=== PATIENT | male | born 1960 | race Caucasian/White ===

== ENCOUNTER 2023-02-13 18:43 | Inpatient (IN) | payer OTHER, BC, SELFPAY ==
[2023-02-13 19:19] VITALS: BP 167/92; PULSE 82; RESP 18; TEMP 36.7; O2SAT 96
[2023-02-13] MEDS: Ibuprofen 400 MG Tablet PO (20:31)
[2023-02-13] MEDS: Atorvastatin Calcium 40 MG Tablet PO (20:31)
[2023-02-13] MEDS: cycloBENZAPRine HCl 10 MG Tablet PO (21:47)
[2023-02-13] MEDS: Senna/Docusate Sodium 1 Tablet 2 TABLET PO (21:47)
[2023-02-14 01:28] VITALS: BMI 26.2
[2023-02-14] MEDS: Ibuprofen 400 MG Tablet PO ×3 (06:13→21:13)
[2023-02-14] MEDS: cycloBENZAPRine HCl 10 MG Tablet PO ×3 (06:14→21:13)
[2023-02-14 07:56] LABS: Anion Gap 6 (5-15); BUN 10 mg/dL (7-18); BUN/Creat Ratio 15.8 RATIO (10-20); Calcium,Total 8.7 mg/dL (8.5-10.1); Chloride 104 mmol/L (98-107); Creatinine, Serum 0.63 mg/dL (0.55-1.02); EST Glomerular Filtration Rate 102 mL/min (>60); Est Glom Filt Rate - Afr Amer 124 mL/min (>60); Glucose 89 mg/dL (74-106); Magnesium 2.2 mg/dL (1.6-2.6); Phosphorus 3.9 mg/dL (2.5-4.9); Sodium Level 136 mmol/L (136-145)
[2023-02-14 07:58] VITALS: BP 146/83; PULSE 86; RESP 18; TEMP 36.1; O2SAT 92
[2023-02-14] MEDS: Senna/Docusate Sodium 1 Tablet 2 TABLET PO ×2 (08:19→21:13)
[2023-02-14] MEDS: Polyethylene Glycol 3350 17 GM PACKET PO (08:19)
[2023-02-14] MEDS: Lisinopril 10 MG Tablet PO (08:19)
[2023-02-14 08:22] LABS: Hematocrit 38.3 % (37-47); Hemoglobin 13.1 g/dL (12.0-15.0); Mean Corp Hgb Conc 34.2 g/dL (32-36); Mean Corpuscular Hgb 31.3 pg (27.0-32.0); Mean Corpuscular Volume 91.4 fL (81-99); Mean Platelet Vol. 9.7 fl (6.2-12.0); Platelet Count 286 K/mm3 (150-450); RBC Distribution Width SD 40.3 fl (35.1-43.9); Red Blood Count 4.19 M/mm3 (4.2-5.4)
[2023-02-14] MEDS: Magnesium Hydroxide 30 ML UDC PO (16:48)
[2023-02-14 19:47] VITALS: BP 148/87; PULSE 95; RESP 16; TEMP 36.9; O2SAT 95
[2023-02-14] MEDS: Atorvastatin Calcium 40 MG Tablet PO (21:13)
[2023-02-14 22:00] VITALS: PULSE 90; RESP 16; O2SAT 95
[2023-02-15] MEDS: Ibuprofen 400 MG Tablet PO ×3 (05:21→20:49)
[2023-02-15] MEDS: cycloBENZAPRine HCl 10 MG Tablet PO ×3 (05:21→20:50)
[2023-02-15 07:50] VITALS: BP 153/84; PULSE 89; RESP 17; TEMP 36.8; O2SAT 91; O2SAT 93
[2023-02-15] MEDS: Senna/Docusate Sodium 1 Tablet 2 TABLET PO ×2 (08:03→20:48)
[2023-02-15] MEDS: Lisinopril 10 MG Tablet PO (08:03)
--- NOTE | 2023-02-15 08:21 | CPS ---
PT WAS INSTRUCTED TO DO SMI AND PEP ON OWN AFTER HE'S DONE WITH BREAKFAST
--- NOTE | 2023-02-15 11:19 | CPS ---
PT WAS UNAVAILABLE AT THIS TIME BUT WAS INSTRUCTED TO USE ON OWN WHEN ABLE.
--- NOTE | 2023-02-15 11:37 | PCM.HP.STD ---
[facility] - General General Date of Admission: 02/13/23 Date of Service: 02/15/23 Chief Complaint: Physical debility secondary to severe pain from a lumbar vertebral fracture sustained in a fall. 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 A CT of the LS spine showed a burst fracture of L1 with a 30% loss of height and a 4 mm retropulsion of the posterior fracture fragment. The fracture was of the superior aspect of L1 with anterior wedging. A CT scan of the thoracic spine without contrast showed the L1 vertebral fracture but also showed multilevel flowing ventrolateral osteophytes, possibly reflective of DISH, and coronary calcification. He was admitted to a hospital for pain control and consult with orthopedics. While in the hospital he was seen by PT/OT and they recommended acute rahab at [place]. Neck was transferred to the acute inpatient rehab unit at [facility] on 02/13/2023 for 3 hours of therapy daily to restore function at or near level prior to the fall/fracture. Incidental finding on CT of the cervical spine was prominent [place] tonsils with tonsillolith. A lipid panel was done at the previous hospital and it showed triglycerides of 160, a total cholesterol of 186, HDL of 40 and a calculated LDL of 114. TSH was normal. Afebrile VSS-blood pressures since admission have ranged from 146/83 to 167/92. Heart rate is within normal limits. Maintaining appropriate oxygen saturation on RA-pulse ox on room air has ranged from 91-96. Oral intake is good Discussed with nursing -was straight cathed once for a postvoid residual of 350. To postvoid residuals after that were 52 and 79. Reviewed the PT/OT/ST notes Medication list reviewed. Medications prescribed for back pain include Flexeril 10 mg 3 times daily, Motrin 400 mg every 8 hours, morphine sulfate immediate release 7.5 mg every 4 hours as needed. He had 2 doses of morphine sulfate on 02/14/2023 with the last one being at approximately 4:30 PM. He has not had any since. He is requesting a nicotine patch and he was prescribed a 14 mg patch. All lab from the morning of 02/14/2023 was reviewed. White blood cell count is normal at 10 and the hemoglobin is normal at 13.1. MCV and MCH are within normal limits. Platelet count is normal. Sodium is 136 with a potassium of 4.0. The BUN is 10 with a creatinine of 0.63. Fasting glucose was 89. Calcium, phosphorus and magnesium are all within normal limits. [facility] Medical History (Updated 02/15/23 @ 12:[address] Susy Ag DO) Colon polyps Diabetes Hyperlipidemia Hypertension Spondylosis Tobacco dependence due to chewing tobacco Home Medications atorvastatin 40 mg tablet 40 mg PO QHS Check with primary doctor 02/13/23 [History Last Taken 02/12/23] cyclobenzaprine 10 mg tablet 10 mg PO TID Check with primary doctor 02/13/23 [History Last Taken 02/12/23] ibuprofen 400 mg tablet 400 mg PO Q8H PRN Pain (Scale Score 1-10) 02/13/23 [History Last Taken 02/12/23] lisinopril 10 mg tablet 10 mg PO DAILY Check with primary doctor 02/13/23 [History Last Taken 02/13/23] oxycodone 5 mg capsule 5 mg PO Q6H PRN Moderate Pain (Scale Score 5-10) 02/13/23 [History Last Taken 02/13/23 18:45] polyethylene glycol 3350 17 gram oral powder packet (Miralax) 17 g PO DAILY Check with primary doctor 02/13/23 [History Last Taken 02/13/23] sennosides 8.6 mg-docusate sodium 50 mg capsule 2 tab-cap PO BID Check with primary doctor 02/13/23 [History Last Taken Unknown] Allergy/AdvReac Type Severity Reaction Status Date / Time No Known Allergies Allergy Verified 02/13/23 19:21 Family History (Updated 02/15/23 @ 12:[address] Susy Ag DO) Uncle CAD (coronary artery disease) maternal uncle young of a [place] Father Cancer suspect esophageal CA. Had a lump in the throat/neck and was losing a lot of weight. He was a drinker and a smoker. Grandmother Diabetes maternal and paternal GM's had DM II Surgical History (Updated 02/15/23 @ 12:[address] Susy Ag DO) History of colonoscopy with polypectomy Social History (Updated 02/15/23 @ 12:[address] Susy Ag DO) household members: spouse, family and other details: He has a son and has 3 children. 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 Smoking Status: Never smoker Smokeless tobacco user: chewing tobacco Electronic Cigarette Use: not used second hand exposure: Yes alcohol intake: current alcohol intake frequency: a few times a month substance use type: does not use ROS Constitutional Constitutional: Reports weakness; Denies anorexia, change in weight, chills, fatigue, fever(s) or night sweats Eyes Eyes: Denies blurry vision, change in vision, eye pain or loss of vision ENT HEENT: Denies abnormal hearing, dysphagia, headache(s), hearing loss, nasal congestion or sore throat Cardiovascular Cardiovascular: Denies chest pain, dyspnea on exertion, edema, lightheadedness, orthopnea, palpitations, paroxysmal nocturnal dyspnea or syncope Respiratory/Chest Respiratory/Chest: Denies cough, dyspnea, shortness of breath at rest, shortness of breath with exertion or wheezing Gastrointestinal Gastrointestinal: Reports constipation; Denies abdominal pain, diarrhea, dyspepsia, hematemesis, hematochezia, nausea or vomiting Genitourinary Genitourinary: Denies dysuria, hematuria, nocturia, urinary frequency, urinary hesitancy, urinary incontinence or urinary urgency Musculoskeletal Musculoskeletal: Reports back pain, difficulty walking, muscle spasms and stiffness; Denies extremity pain, joint pain, joint swelling or neck pain Integumentary Integumentary: Denies alopecia, changing lesions or jaundice Neurologic Neurologic: Denies confusion, disequilibrium, dizziness, focal weakness, headache(s), paresthesias, seizures or tremor(s) Psychiatric Psychiatric: Denies anxiety, depression, homicidal ideation or suicidal ideation Endocrine Endocrinology: Denies change in body appearance, polydipsia or polyuria Hematologic/Lymphatic Hematologic/Lymphatic: Denies easy bleeding, easy bruising or lymphadenopathy Allergic/Immunologic Allergic/Immunologic: Denies rhinitis, eczemia or asthma Vital Signs Vital Signs Vital Signs: 02/14/23 16:00 02/14/23 19:47 02/14/23 22:00 Temperature 98.4 F Temperature Source Oral Pulse Rate 95 90 Respiratory Rate 16 16 Respiratory Effort Normal Non-Labored Respiratory Depth Normal Respiratory Pattern Normal Blood Pressure 148/87 H Blood Pressure Mean 107 Blood Pressure Source Monitor Blood Pressure Position Semi-Fowlers Blood Pressure Location Right Arm Pulse Ox 95 95 Oxygen Delivery Method Room Air Room Air Room Air 02/15/23 07:50 02/15/23 07:50 Temperature 98.2 F Temperature Source Oral Pulse Rate 89 Respiratory Rate 17 Respiratory Effort Respiratory Depth Respiratory Pattern Blood Pressure 153/84 H Blood Pressure Mean 107 Blood Pressure Source Monitor Blood Pressure Position Semi-Fowlers Blood Pressure Location Right Arm Pulse Ox 93 91 Oxygen Delivery Method Room Air Room Air Weight Weight: 161 lb 6.054 oz Body Mass Index (BMI) 26.2 Physical Exam Const alert, oriented x3, no apparent distress and well nourished Constitutional Narrative: Lying in bed. General Appearance: cooperative HEENT normocephalic, head/scalp atraumatic and hearing grossly normal bilaterally HEENT Narrative: MM are dry Eyes PERRL, EOMs intact bilaterally, conjunctivae normal and no scleral icterus General Eye: normal appearance of both eyes Neck no lymphadenopathy, supple, no JVD and no carotid bruits Chest Chest: symmetrical chest wall rise Resp normal respiratory effort, no use of accessory muscles and clear to auscultation bilaterally Resp Narrative: Not tachypneic and no conversational dyspnea. Diminished BS's. Effort and Inspection: able to speak in complete sentences Cardio regular rate, regular rhythm, S1 normal heart sound, S2 normal heart sound, no murmurs, no rub and no gallops Cardio Narrative: No ectopy GI normal to inspection, nondistended, normoactive bowel sounds and non-tender GI Narrative: No guarding with palpation. Bladder / Kidney Exam: no CVA tenderness Back/Spine Back/Spine Narrative: Pain in the lumbar area BL. Has a lot of Muscle spasm in the lumbar paravertebral Muscles. Good strength in legs and symmetrical. SLR is + but, not until 70-75 degrees and the pain was in the back not in the legs. Extremity no clubbing, cyanosis or edema Extremity Narrative: Negative Efren's and Feliz's signs Skin Skin Narrative: No rashes, no skin breakdown. Neuro oriented x3, CN's II-XII intact bilaterally and no focal motor deficits Motor Exam: strength 5/5 throughout Psych affect normal Psych Narrative: Appropriate, making good eye contact. Able to stay on topic and focus. No flight of ideas. Does not appear anxious or depressed. Conversant and relating well to staff. Results Lab / Micro Data Result Diagrams: 02/14/23 07:32 02/14/23 07:32 Assessment & Plan Assessment/Plan (1) Debility: (2) Fall: PLAN: 4 ft fall onto his back while at work (3) Acute low back pain: PLAN: Has had Back and neck pain in the past when he was doing a job that required a lot of lifting. He does not do much lifting at the current job and has only occasional low back pain. (4) Closed L1 vertebral fracture: PLAN: 30% loss of height of L1 with anterior wedging and a retropulsed fragment. (5) Spondylosis: PLAN: The radiologist suggested the possibility of DISH. (6) Tobacco dependence due to chewing tobacco: (7) Hypertension: (8) Hyperlipidemia: (9) Diabetes: PLAN: diet controlled (10) Colon polyps: PLAN: He should have another colonoscopy since it has been over 5 years and he had 3 polyps at the last colonoscopy. PLAN: Plan PLAN PT for gait stability OT for ADL's Analgesics as needed Bowel protocol Fall precautions Assess for Anxiety/Depression GI prophylaxis-not necessary, no history of peptic ulcer disease and he denies epigastric pain, nausea and vomiting. DVT prophylaxis with JAKOB hose and Lovenox 40 mg subcu daily Follow up with PCP and orthopedics following DC from [facility] AM lab including BMP, CBC, Mag and Phos reviewed. Will provide him with information on DISH and tx.......no cure. No heavy lifting. Cessation of chewing tobacco encouraged Nicotine patch Overnight trending pulse ox. Snores loudly and his states he stops breathing at times. Charges/Coding Visit Charges Inpatient E&M: 86685 Init Hosp L2
[2023-02-15] MEDS: Enoxaparin 40 MG/0.4 ML Syringe SC (14:28)
[2023-02-15] MEDS: Bisacodyl 5 MG Tablet 10 MG PO (14:28)
[2023-02-15 19:55] VITALS: BP 125/84; PULSE 89; RESP 14; TEMP 36.7; O2SAT 94
[2023-02-15] MEDS: Atorvastatin Calcium 40 MG Tablet PO (20:49)
[2023-02-15 22:00] VITALS: PULSE 79; O2SAT 94
[2023-02-16] MEDS: Ibuprofen 400 MG Tablet PO ×3 (05:12→21:00)
[2023-02-16] MEDS: cycloBENZAPRine HCl 10 MG Tablet PO ×2 (05:12→15:11)
[2023-02-16] MEDS: Enoxaparin 40 MG/0.4 ML Syringe SC (08:23)
[2023-02-16] MEDS: Lisinopril 10 MG Tablet PO (08:24)
[2023-02-16 08:45] VITALS: BP 148/91; PULSE 80; RESP 20; TEMP 36.2; O2SAT 93
--- NOTE | 2023-02-16 16:00 | REHABEVAL_ITS ---
Admission Information Primary Diagnosis:: Debility due to a fall resulting in a burst fracture of L1. Status Changes from Prescreening?: No changes Identified Actual Problem List:: Falls, Pain, ALteration in Cmfrt, Bowel, Constipation, Mobility Impaired, Self Care Deficit and Alteration-Leisure Activ. Potential Problem List:: DVT, Bleeding, Infection, UTI, Aspiration, Falls, Skin Integrity and Depression Risk of Complications DVT: LMWH and JAKOB Hose Bleeding: Monitor Lab Values, Nursing to Teach Precautions for anti-coagulation therapy., Wound, if applicable, to be assessed every shift. and Stroke patients assessed for lethargy or change in status. Infection: Clinical Staff to Monitor for S/S of infection: and S/S of infection include fever, redness, warmth, etc. Urinary Tract Infection: Monitor for frequency, burning, discomfort, or incontinence. and Nursing will obtain urine sample for urinalysis and C&S when ordered. Aspiration: Clinical staff will monitor for coughing, drooling, congestion., Speech will evaluate swallowing and dsyphasia. and Nursing will monitor patient swallowing during meals. Falls: Patient will be evaluated for Fall Precautions and Patient will be placed on Fall Precautions as indicated per protocol. Skin Breakdown: Nursing will assess skin daily using assessment tool. and Nursing will place on Skin Breakdown Precautions as indicated. Pain: Clinical staff will assess patient's pain level per protocol., Medications will be given, if needed, and the pain level reassessed. and Other methods: Massage, distraction, decrease stimulus, etc. used PRN. Plan of Care Patient requires physician specializing in physical medicine and rehab oversight to provide close medical supervision of rehab issues including: Pain Management, Sleep Problems, Bowel and Bladder, Medical and co-morbidity Management, DVT prophylaxis, Rehabilitation Leadership and Coordination of treatment team Patient needs Physical Therapy: For a minimum of 1 hour and At least 5 out of 7 days Patient needs Physical Therapy to improve:: Mobility, Strengthening, Transfers, Stretching, ROM, Endurance, Stairs, Gait and Balance Patient needs Occupational Therapy: For a minimum of 1 hour and At least 5 out of 7 days Patient needs Occupational Therapy to improve ADL's incl.: Eating, Grooming, Bathing, Dressing, Toileting, Toilet transfers, Community Reintegration, Higher functioning activities, Household tasks, Adaptive Equipment, Splinting and Other activities as determined Patient requires 24/ Rehabilitation Nursing for: Pain Issues, Identifying and preventing risk factors, Monitoring and reporting current medical conditions, Assisting with ambulation, transfer, and all ADL's, Teaching patients about disease process and medications, Family teaching, Providing safe environment, Bowel and Bladder Issues, Skin integrity and Medication Management Patient needs Loader Helper Sorting Yard/ Case Management for: Discharge Planning, Arranging Home Equipment or Services and Family Interventions Patient needs Dietary and Nutrition Services for: Adequate Nutrition, Nutritional Supplements and Nutritional Education Goals Patient will remain: free from falls and or injury at time of discharge. Patient will perform bed mobility at: MOD I level of assist. Patient will complete transfers from bed to chair at: MOD I level of assist. Patient will ambulate: with LRD and - (200 feet with least restrictive device) Patient will complete upper body dressing at: MOD I level of assist. Patient will complete lower body dressing at: Standby Assist. (with a long handled certified diabetes educator. ) Patient will complete toileting at: MOD I level of assist. Patient will perform bathing at: MOD I level of assist. Patient will complete grooming at: MOD I level of assist. Patient will complete home management skills at: MOD I level of assist. Patient will achieve: - (1 curb step. A flight of stairs with LRD with HR's) Patient will have pain level of: of 3 or less Patient's skin will: remain intact Patient will receive: adequate nutrition. Discharge Planning Pt Prognosis for Sig. Practical Improv. w/in Reasonable Time: Good Estimated Length of stay (days): 14 Anticipated D/C Destination: Home with Outpt Therapy Was Preadmission Assessment Accurate?: Yes
--- NOTE | 2023-02-16 16:06 | PCM.PROGNOTE ---
Subjective Subjective Afebrile VSS-blood pressure was elevated this morning at 148/91. It is more frequently elevated than normal. Heart rate is normal. Maintaining appropriate oxygen saturation on RA while awake. Oral intake is good Discussed with nursing - no problems that need addressed Reviewed the PT/OT notes-ambulated 110 feet x 2 today with a rollator walker. He had pain shooting down both his legs with hip abduction. Medication list reviewed. Has not taken any MS since Thursday. No pain at rest but, even though he is not taking pain meds he is having severe pain which is impairing his ability to do therapy.........shooting pain into both legs today when standing with hip abduction. Took several minutes of sitting for the pain to improve. He denies any pain in his legs to me. Objective Data Objective Data Vital Signs: Vital Signs Temp Pulse Resp BP Pulse Ox O2 Del Method FiO2 97.1 F L 80 20 H 148/91 H 93 Room Air 21 02/16/23 08:45 02/16/23 08:45 02/16/23 08:45 02/16/23 08:45 02/16/23 08:45 02/16/23 08:45 02/15/23 22:00 Oxygen Delivery Method Room Air Weight: 161 lb 6.054 oz Body Mass Index (BMI) 26.2 Intake & Output: Intake and Output for Last 24 Hours 02/14/23 02/15/23 02/16/23 23:59 23:59 23:59 Intake Total 1580 / 1580 1340 / 1340 680 / 680 Output Total 2136 / 2136 1250 / 1250 350 / 350 Balance -556 / -556 90 / 90 330 / 330 Lab / Micro Data Result Diagrams: 02/14/23 07:32 02/14/23 07:32 Physical Exam Const alert, oriented x3 and no apparent distress Constitutional Narrative: looks fine lying in bed. Ambulating with a very slow gait in the hallway. Looked to be in pain with ambulation. Resp clear to auscultation bilaterally Effort and Inspection: Negative for tachypneic Auscultation: diminished lung sounds Cardio regular rate, regular rhythm and no gallops GI normal to inspection, nondistended, normoactive bowel sounds, soft to palpation and non-tender Extremity no calf tenderness General Extremity: Negative for edema Neuro CN's II-XII intact bilaterally, no focal motor deficits and no sensory deficits noted Psych affect normal Assessment & Plan Assessment/Plan (1) Debility: (2) Fall: PLAN: 4 ft fall onto his back while at work (3) Acute low back pain: PLAN: Has had Back and neck pain in the past when he was doing a job that required a lot of lifting. He does not do much lifting at the current job and has only occasional low back pain. (4) Closed L1 vertebral fracture: PLAN: 30% loss of height of L1 with anterior wedging and a retropulsed fragment. (5) Spondylosis: PLAN: The radiologist suggested the possibility of DISH. (6) Tobacco dependence due to chewing tobacco: (7) Hypertension: (8) Hyperlipidemia: (9) Diabetes: PLAN: diet controlled (10) Colon polyps: PLAN: He should have another colonoscopy since it has been over 5 years and he had 3 polyps at the last colonoscopy. PLAN: Plan 1. Continue therapy 2. DC Flexeril and start Zanaflex for persistent muscle spasms 3. Continue morphine sulfate 7.5 mg every 4 hours as needed but scheduled doses in the a.m. with breakfast and at lunchtime to facilitate better participation with therapy. 3. D/W him vertebroplasty and also the sx of DISH and tx. Will provide some literature for him to read on DISH. 4. Encouraged him to take the pain medications for pain > 3 to facilitate better performance in therapy. 5. If he is interested in vertebroplasty will refer to Dr. Isaac at [place] from rehab. Charges/Coding Visit Charges Inpatient E&M: 00181 Subs Hosp L2
[2023-02-16] MEDS: Atorvastatin Calcium 40 MG Tablet PO (21:00)
[2023-02-16] MEDS: tiZANidine HCl 2 MG Tablet 4 MG PO (21:01)
[2023-02-16 21:11] VITALS: BP 139/84; PULSE 71; RESP 16; TEMP 36.6; O2SAT 96
[2023-02-17] MEDS: tiZANidine HCl 2 MG Tablet 4 MG PO ×3 (06:16→21:22)
[2023-02-17] MEDS: Ibuprofen 400 MG Tablet PO ×3 (06:16→21:22)
[2023-02-17 07:32] VITALS: BP 128/81; PULSE 75; RESP 14; TEMP 36.4; O2SAT 98
[2023-02-17] MEDS: Senna/Docusate Sodium 1 Tablet 2 TABLET PO ×2 (08:21→21:22)
[2023-02-17] MEDS: Lisinopril 10 MG Tablet PO (08:21)
[2023-02-17] MEDS: Polyethylene Glycol 3350 17 GM PACKET PO (08:21)
[2023-02-17] MEDS: Enoxaparin 40 MG/0.4 ML Syringe SC (08:21)
--- NOTE | 2023-02-17 14:50 | PCM.PROGNOTE ---
Subjective Subjective Afebrile VSS-blood pressures are consistently mildly elevated. Maintaining appropriate oxygen saturation on RA Oral intake is good Discussed with nursing - no problems that need addressed. Reviewed the PT/OT/ST notes Medication list reviewed. Pain was better today while doing his therapy since we are now scheduling 2 doses of the MS daily at breakfast and lunch. He denies chest pain, shortness of breath, palpitations, lightheadedness, nausea/vomiting/abdominal pain, dysuria and calf tenderness. He is having some difficulty sleeping at night but refused a sleep aid. He is taking the 2 doses of morphine sulfate daily but is not taking any as needed doses, even though he has pain at night. Objective Data Objective Data Vital Signs: Vital Signs Temp Pulse Resp BP Pulse Ox O2 Del Method FiO2 97.6 F L 75 14 128/81 H 98 Room Air 21 02/17/23 07:32 02/17/23 07:32 02/17/23 07:32 02/17/23 07:32 02/17/23 07:32 02/17/23 07:32 02/15/23 22:00 Oxygen Delivery Method Room Air Weight: 161 lb 6.054 oz Body Mass Index (BMI) 26.2 Intake & Output: Intake and Output for Last 24 Hours 02/15/23 02/16/23 02/17/23 23:59 23:59 23:59 Intake Total 1340 / 1340 1220 / 1220 540 / 540 Output Total 1250 / 1250 350 / 850 850 / 850 Balance 90 / 90 870 / 370 -310 / -310 Lab / Micro Data Result Diagrams: 02/14/23 07:32 02/14/23 07:32 Physical Exam Const alert and oriented x3 Constitutional Narrative: Still looks painful when he is ambulating in the huber with a walker but, his pace has picked up since he is getting the scheduled SM at 0700 and 1200. General Appearance: cooperative Resp clear to auscultation bilaterally Auscultation: diminished lung sounds Cardio regular rate, regular rhythm and no gallops GI normal to inspection, nondistended, normoactive bowel sounds, soft to palpation and non-tender Back/Spine Back/Spine Narrative: Having spasms in the low back......more so at the end of the day. He is getting scheduled Tizanidine and tells me that it is helping. Has pain with percussion over the L1 vertebrae but he tells me that the pain medication is adequate. Extremity no calf tenderness Assessment & Plan Assessment/Plan (1) Debility: PLAN: Due to L1 compression fx with retropulsed fragment. 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 (3) Acute low back pain: PLAN: No radicular pain or paresthesias into the legs and no urine retention or fecal/urine incontinence. (4) Closed L1 vertebral fracture: PLAN: 30% anterior wedging of L1. Has a retropulsed fragment into spinal canal with no cord compression. (5) Spondylosis: PLAN: LS spine (6) Tobacco dependence due to chewing tobacco: PLAN: Long standing. Has a white patch on the R tonsil and was instructed to follow up with an ENT doctor to examine. (7) Hypertension: PLAN: Mildly elevated in rehab, possibly due to pain. Advised to follow up with Dr. Way for a recheck in 7-10 days. (8) Hyperlipidemia: (9) Diabetes: PLAN: diet controlled. (10) Colon polyps: PLAN: Has had resection of polyps. Last colonoscopy was > 5 years ago. (11) Tonsillolith: PLAN: I recommended to him that he stop chewing tobacco and follow up with an ENT doctor to look at the tonsils and see if he may need a bx. I will give him nicotine patches to go home home with and wean off over the next 2 months. PLAN: Plan 1. Continue therapy Charges/Coding Visit Charges Inpatient E&M: 65981 Subs Hosp L2
[2023-02-17 21:15] VITALS: BP 106/62; PULSE 66; RESP 18; TEMP 36.7; O2SAT 95
[2023-02-17] MEDS: Atorvastatin Calcium 40 MG Tablet PO (21:22)
[2023-02-18 06:00] VITALS: BMI 25.2
[2023-02-18] MEDS: Ibuprofen 400 MG Tablet PO ×3 (06:24→20:56)
[2023-02-18] MEDS: tiZANidine HCl 2 MG Tablet 4 MG PO ×3 (06:24→20:56)
--- NOTE | 2023-02-18 06:41 | NURSING ---
BATTERYMAN documentation reviewed with agreed with.
[2023-02-18 07:51] VITALS: BP 136/81; PULSE 72; RESP 14; TEMP 36.2; O2SAT 95
[2023-02-18 09:12] VITALS: PULSE 74; RESP 18; O2SAT 98
[2023-02-18] MEDS: Senna/Docusate Sodium 1 Tablet 2 TABLET PO ×2 (10:19→20:56)
[2023-02-18] MEDS: Lisinopril 10 MG Tablet PO (10:19)
[2023-02-18] MEDS: Enoxaparin 40 MG/0.4 ML Syringe SC (10:19)
[2023-02-18] MEDS: Magnesium Hydroxide 30 ML UDC PO (20:56)
[2023-02-18] MEDS: Atorvastatin Calcium 40 MG Tablet PO (20:56)
[2023-02-18 22:00] VITALS: BP 104/64; PULSE 71; RESP 18; TEMP 36.7; O2SAT 94
[2023-02-19] MEDS: tiZANidine HCl 2 MG Tablet 4 MG PO ×3 (05:34→21:07)
[2023-02-19] MEDS: Ibuprofen 400 MG Tablet PO ×3 (05:34→21:08)
[2023-02-19 09:18] VITALS: BP 135/71; PULSE 65; RESP 15; TEMP 36.3; O2SAT 96
[2023-02-19] MEDS: Enoxaparin 40 MG/0.4 ML Syringe SC (09:24)
[2023-02-19] MEDS: Senna/Docusate Sodium 1 Tablet 2 TABLET PO ×2 (09:25→21:08)
[2023-02-19] MEDS: Lisinopril 10 MG Tablet PO (09:25)
[2023-02-19] MEDS: Polyethylene Glycol 3350 17 GM PACKET PO (09:25)
--- NOTE | 2023-02-19 10:22 | PCM.PROGNOTE ---
Subjective Subjective George was seen on team rounds today. His Carter was present in the room. Carter is an RN. All questions were answered to their satisfaction. Afebrile VSS Maintaining appropriate oxygen saturation on RA Oral intake is good Discussed with nursing - no problems that need addressed Reviewed the PT/OT notes - He is progressing with PT/OT. Still using a RW. Did some steps today with 2 HR's at [facility]. Gait has picked up but, still with painful gait. Medication list reviewed. Has not been taking any MS as needed but is good with the scheduled doses at 7 AM and noon because it helps him get through therapy easier. Tells me that he did not sleep so well last night however, every time nursing looked in on him he was sleeping. We discussed adding something to help him sleep at night and he said no......he would be OK. He is also c/o constipation. Last BM was 2 days ago and he is on 2 stool softeners. He has PRN laxative needed if he feels he needs it. George denies chest pain, palpitations, shortness of breath, cough, nausea/vomiting/abdominal pain, dysuria and calf tenderness. He denies any radicular pain into his legs or paresthesias. No difficulty with urination. Objective Data Objective Data Vital Signs: Vital Signs Temp Pulse Resp BP Pulse Ox O2 Del Method FiO2 97.4 F L 65 15 135/71 H 96 Room Air 21 02/19/23 09:18 02/19/23 09:18 02/19/23 09:18 02/19/23 09:18 02/19/23 09:18 02/19/23 09:18 02/15/23 22:00 Oxygen Delivery Method Room Air Weight: 154 lb 14.4 oz Body Mass Index (BMI) 25.2 Intake & Output: Intake and Output for Last 24 Hours 02/17/23 02/18/23 02/19/23 23:59 23:59 23:59 Intake Total 1400 / 1400 1330 / 1330 Output Total 1450 / 1450 550 / 550 Balance -50 / -50 780 / 780 Lab / Micro Data Result Diagrams: 02/14/23 07:32 02/14/23 07:32 Physical Exam Const alert, oriented x3 and no apparent distress Constitutional Narrative: looks fine lying in bed. Ambulating with a very slow gait in the hallway. Looked to be in pain with ambulation. General Appearance: cooperative HEENT moist oral mucous membranes HEENT Narrative: He has been a tobacco chewer for many years. CT report from the other hospital mentioned a tonsillolith. His tonsils are no large but, I see several areas that look follicular and a white nodule on the R tonsil. Resp normal respiratory effort and clear to auscultation bilaterally Resp Narrative: Not tachypneic and no conversational dyspnea. Diminished BS's. Effort and Inspection: able to speak in complete sentences Auscultation: diminished lung sounds Cardio regular rate, regular rhythm, no murmurs, no rub and no gallops Cardio Narrative: No ectopy GI normal to inspection, nondistended, normoactive bowel sounds, soft to palpation and non-tender GI Narrative: No guarding with palpation. Bladder / Kidney Exam: no CVA tenderness Back/Spine Back/Spine Narrative: Pain in the lumbar area BL. Has a lot of Muscle spasm in the lumbar paravertebral Muscles. Good strength in legs and symmetrical. SLR is + but, not until 70-75 degrees and the pain was in the back not in the legs. Extremity no calf tenderness General Extremity: Negative for edema Skin Skin Narrative: No rashes, no skin breakdown. Neuro oriented x3, CN's II-XII intact bilaterally, no focal motor deficits and no sensory deficits noted Motor Exam: strength 5/5 throughout Psych affect normal Assessment & Plan Assessment/Plan (1) Debility: (2) Fall: (3) Acute low back pain: (4) Closed L1 vertebral fracture: (5) Spondylosis: (6) Tobacco dependence due to chewing tobacco: (7) Hypertension: (8) Hyperlipidemia: (9) Diabetes: (10) Colon polyps: (11) Tonsillolith: PLAN: I recommended to him that he stop chewing tobacco and follow up with an ENT doctor to look at the tonsils and see if he may need a bx. I will give him nicotine patches to go home home with and wean off over the next 2 months. PLAN: Plan 1. Continue therapy 2. Consult Dr. Dr. Isaac to discuss vertebroplasty with the patient and his so that we can get him scheduled BIA for the procedure if he wants. Send for a FILM of the MRI so Dr. Isaac can review. 3. Carter would like to be home for the first few days that George's home to make sure he will be safe at home. George and the therapists feel that he will be OK home alone and he would like to be discharged sooner rather than later. Will see how the next few days of therapy go. 4. Continue scheduled morphine sulfate at 7 AM and noon while he is in rehab. 5. Carter will get me paperwork to fill out for FMLA. She will come in next week for family training. Charges/Coding Visit Charges Inpatient E&M: 63721 Subs Hosp L2
--- NOTE | 2023-02-19 13:09 | CASEMGMT ---
Addendum entered by Swapna Adames 02/19/23 16:51: spoke with Dr and requesting DC 02/22, as long as Dr. Isaac can visit pt to get procedure scheduled. agreeable to OP PT/OT, requesting [facility]. SW to place referral. Plan: DC home with 02/22, [facility] OP PT/OT, shower chair Addendum entered by Swapna Adames 02/19/23 16:51: SW left voicemail with Avani GARCIA CM. Received return voicemail with secure email address. Email sent requesting C-9 to request OP ST and shower chair Original Note: Social Work IDT met with patient and for Team meeting. Discussed patient's progress in PT/OT/SN. Educated to worker's comp insurance NRD 02/20 and continued stay is not guaranteed. SW offered to set DC date or ask for continued stay. is a little apprehensive about DC home before having pain Dr consult and therapy training. OT/PT scheduled car transfer and therapy training with on 02/20 at 1300. 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 Discussed HHC vs OP therapy at DC. Pt does need shower chair and grab bars in the shower. D/T to workers comp, pt may be able to get that DME covered. SW to ask insurance reviewer for workers comp CM to order HHC/OP and DME. Overall, requesting continued stay and this worker to assist with DC planning. APOORVA CalhounW
[2023-02-19] MEDS: Magnesium Hydroxide 30 ML UDC PO (19:02)
[2023-02-19] MEDS: Atorvastatin Calcium 40 MG Tablet PO (21:08)
[2023-02-19 22:00] VITALS: BP 124/70; PULSE 62; PULSE 68; RESP 18; TEMP 36.8; O2SAT 95
--- NOTE | 2023-02-20 04:03 | NURSING ---
Reviewed and agree with Tasha QUIGLEY documentation and assessment charting.
[2023-02-20] MEDS: Ibuprofen 400 MG Tablet PO ×3 (06:04→20:46)
[2023-02-20] MEDS: tiZANidine HCl 2 MG Tablet 4 MG PO ×3 (06:05→20:46)
[2023-02-20 07:27] VITALS: BP 118/59; PULSE 65; RESP 16; TEMP 36.4; O2SAT 96
--- NOTE | 2023-02-20 08:36 | CASEMGMT ---
Social Work Notified by nursing that Dr. Isaac saw pt last evening. Pt and are ready to DC on 02/22. SW received C9 from [employer] comp CM. CM instructed for pt to purchase shower chair and then submit receipt for reimbursement. SW updated pt. Returned C9 and placed referral to [facility] for PT/OT, outpatient. Plan: DC home with 02/22, [facility] OP PT/OT, shower chair Swapna Adames, [employer] ATTENDANT FLASH DEVELOPER
[2023-02-20] MEDS: Enoxaparin 40 MG/0.4 ML Syringe SC (08:48)
[2023-02-20] MEDS: Senna/Docusate Sodium 1 Tablet 2 TABLET PO ×2 (08:49→20:46)
[2023-02-20] MEDS: Polyethylene Glycol 3350 17 GM PACKET PO (08:49)
[2023-02-20] MEDS: Lisinopril 10 MG Tablet PO (08:49)
[2023-02-20 20:00] VITALS: RESP 16; O2SAT 96
[2023-02-20] MEDS: Atorvastatin Calcium 40 MG Tablet PO (20:46)
[2023-02-20 22:00] VITALS: BP 111/68; PULSE 69; RESP 16; TEMP 36.1; O2SAT 95
[2023-02-21] MEDS: Ibuprofen 400 MG Tablet PO ×3 (05:50→21:48)
[2023-02-21] MEDS: tiZANidine HCl 2 MG Tablet 4 MG PO ×3 (05:51→21:49)
[2023-02-21 07:09] VITALS: BP 115/71; PULSE 96; RESP 15; TEMP 36; O2SAT 94
[2023-02-21] MEDS: Lisinopril 10 MG Tablet PO (08:59)
[2023-02-21] MEDS: Polyethylene Glycol 3350 17 GM PACKET PO (09:00)
[2023-02-21] MEDS: Senna/Docusate Sodium 1 Tablet 2 TABLET PO ×2 (09:00→21:48)
[2023-02-21] MEDS: Enoxaparin 40 MG/0.4 ML Syringe SC (09:00)
[2023-02-21 21:40] VITALS: BP 101/53; PULSE 70; RESP 16; TEMP 36.7; O2SAT 99
[2023-02-21] MEDS: Atorvastatin Calcium 40 MG Tablet PO (21:49)
[2023-02-22] MEDS: Ibuprofen 400 MG Tablet PO (06:42)
[2023-02-22] MEDS: tiZANidine HCl 2 MG Tablet 4 MG PO (06:43)
[2023-02-22 07:34] VITALS: BP 135/81; PULSE 69; RESP 16; TEMP 36.4; O2SAT 97
[2023-02-22] MEDS: Enoxaparin 40 MG/0.4 ML Syringe SC (08:17)
[2023-02-22] MEDS: Senna/Docusate Sodium 1 Tablet 2 TABLET PO (08:18)
[2023-02-22] MEDS: Lisinopril 10 MG Tablet PO (08:18)
--- NOTE | 2023-02-22 09:20 | DCINST_ITS ---
Discharge Instructions Diet Discharge Diet: Low fat / Low cholesterol Activity Discharge Activity: May Not Drive and - (Use brace as needed. Do not sit for longer than an hour without getting up to move around. No bending, lifting or twisting. ) Weight Bearing Status: Full weight bearing Lifting Restrictions: No lifting more than 2-3 lbs. Dressing / Incision Call your doctor if you observe: Fever of 101 or Higher, Numbness or Tingling (Numbness or tingling in the legs or groin, sudden weakness of the legs, urinary or fecal incontinence.), Inability to urinate, Inability to have a bowel movement, Shortness of breath, Fainting spells, Swelling in the ankles, Chest pain, Increased palpitations (irregular heartbeat), Calf discomfort and Uncontrolled pain Follow Up Care Please Follow Up With: Robbin Isaac MD When: Tomorrow morning at 11:45. You will also need to follow up with Dr. Ben Way in 7-10 days. Test Results: Test results from this visit will be discussed in further detail at your follow- up appointment, if applicable. Pending Tests Upon Discharge: none. Discharge Plan Admission Admit Date/Time: 02/13/23 18:43 Primary Reason for Your Visit: Debility due to a 4' fall onto his back with fracture of L1 vertebrae. Attending Provider: Susy Ag Primary Care Provider: Ben Way Consulting Providers: Robbin Isaac Instructions Patient Instructions: Kyphoplasty, Lumbar Epidural Injection, Understanding Smokeless Tobacco, ED Fracture, Vertebral Compression, ED How to Quit Smoking Additional Instructions / Restrictions: 1. I am giving you pain medication to go home with. Since I am not your primary care doctor I can only give you a weeks worth of pain medication. You can take the Morphine tablets every 4 hour as needed but, you have only been getting 2 daily. People tend to do more and have more pain at home......if you are doing something that is causing pain stop and rest, take a pain pill if needed. Remember Morphine can cause constipation so you may want to start taking Metamucil, Citracell or Miralax if you are having problems with constipation. 2. I have given you some literature to read about vertebral fractures, epidural injection and Kyphoplasty. You will probably want to read this prior to seeing Dr. Isaac tomorrow so you can be prepared and ask questions if necessary. 3. Chewing tobacco has nicotine in it. Nicotine can cause changes to the lining of the mouth and the tonsils. You have a white patch on your R tonsil that concerns me. These things can turn into cancer and I think you should follow up with an ENT doctor to look at your mouth and tonsils. You may need to have a biopsy. I am giving you a prescription for a 14 mg Nicotine patch to use for the next month and then you will decrease to a 7 mg patch for 2 weeks. The hospital has a quit line that can help if you are having problems staying away from Nicotine. All you need to do is call [phone] and ask to be connected to the smoking cessation coordinator. I have given you some info to read about the side effects of chronic Nicotine use. If I can help you please do not hesitate to call me. 4. Your BP has been mildly elevated at times while you were in rehab. I suspect this is because of pain but, you want to make sure it comes down so follow up with Dr. Way. You may want to purchase a BP cuff and take your BP at home and record the results to take to Dr. Way at your next visit. 5. If you or your have any questions after leaving rehab please do not hesitate to call me. Pleasure to meet you and Carter. Hope Dr. Isaac is able to give you some relief. He is excellent at what he does. OFFICE: [phone] CELL: [phone] Discharge Orders/Prescriptions Prescriptions: New morphine 15 mg Tablet 7.5 mg PO Q4H PRN (Reason: Mod pain (1-10)) 7 Days Qty: 30 0RF nicotine 14 mg/24 hr Patch 24 Hour 14 mg transdermal DAILY Qty: 28 0RF tizanidine 2 mg Tablet 2 - 4 mg PO Q6H PRN PRN (Reason: muscle spasticity) 7 Days Qty: 42 0RF Rx Instructions: 1-2 tabs every 6 H as needed for muscle spasms nicotine 7 mg/24 hr patch 24 hour 1 patch transdermal Q24H Qty: 14 0RF Continued atorvastatin 40 mg tablet 40 mg PO QHS Label Comments: TAKE 1 TABLET BY MOUTH EVERY DAY AT BEDTIME lisinopril 10 mg tablet 10 mg PO DAILY Label Comments: TAKE 1 TABLET BY MOUTH ONCE DAILY ibuprofen 400 mg Tablet 400 mg PO Q8H PRN (Reason: Pain (Scale Score 1-10)) Discontinued cyclobenzaprine 10 mg Tablet 10 mg PO TID polyethylene glycol 3350 [Miralax] 17 gram Powder In Packet 17 g PO DAILY oxycodone [OxyIR] 5 mg Capsule 5 mg PO Q6H PRN (Reason: Moderate Pain (Scale Score 5-10)) sennosides-docusate sodium 8.6-50 mg Capsule 2 tab-cap PO BID Referrals / Follow Up: Robbin Isaac MD [Med Staff - Active Staff] - 02/23/23 11:[address] MD [Primary Care Provider] - (call and make f/u appt) Disposition Disposition (needs filled in before D/C Order can be placed): Home, Self Care
[2023-02-22 10:24] VITALS: BP 132/72; PULSE 75; RESP 17; TEMP 36.8; O2SAT 95
--- NOTE | 2023-02-22 10:26 | DS.PCM_ITS ---
Providers Date of Admission: 02/13/23 Date of Discharge: 02/22/23 Primary Care Physician: Dr. Ben Way MD Consultations 02/19/23 14:18 Consult: Pain Management Routine Consulting Provider: Robbin Isaac Reason for Consult: L1 vertebral fracture with 30% loss of height and anterior wedging EMERGENT Consult: No MD Notified: Yes Date Notified: 02/19/23 Time Notified: 14:18 Method of Notification: Answering Service Reason For Visit: CLOSE COMPRESSION FRACTURE OF L1 VERTEBRA Diagnosis Discharge Diagnosis (1) Debility: Status: Acute Code(s): R53.81 - Other malaise Plan: Due to L1 compression fx with retropulsed fragment. (2) Fall: Status: Acute Code(s): W19.XXXA - Unspecified fall, initial encounter Plan: Fell off truck 4' onto his back. (3) Acute low back pain: Status: Acute Code(s): M54.50 - Low back pain, unspecified Plan: No radicular pain or paresthesias into the legs and no urine retention or fecal/urine incontinence. (4) Closed L1 vertebral fracture: Status: Acute Code(s): S32.019A - Unspecified fracture of first lumbar vertebra, initial encounter for closed fracture Plan: 30% anterior wedging of L1. Has a retropulsed fragment into spinal canal with no cord compression. (5) Spondylosis: Status: Acute Code(s): M47.9 - Spondylosis, unspecified Plan: LS spine (6) Tobacco dependence due to chewing tobacco: Status: Acute Code(s): F17.220 - Nicotine dependence, chewing tobacco, uncomplicated Plan: Long standing. Has a white patch on the R tonsil and was instructed to follow up with an ENT doctor to examine. (7) Hypertension: Status: Chronic Code(s): I10 - Essential (primary) hypertension Plan: Mildly elevated in rehab, possibly due to pain. Advised to follow up with Dr. Way for a recheck in 7-10 days. (8) Hyperlipidemia: Status: Acute Code(s): E78.5 - Hyperlipidemia, unspecified (9) Diabetes: Status: Acute Code(s): E11.9 - Type 2 diabetes mellitus without complications Plan: diet controlled. (10) Colon polyps: Status: Acute Code(s): K63.5 - Polyp of colon Plan: Has had resection of polyps. Last colonoscopy was > 5 years ago. (11) Tonsillolith: Status: Acute Code(s): J35.8 - Other chronic diseases of tonsils and adenoids Plan: I recommended to him that he stop chewing tobacco and follow up with an ENT doctor to look at the tonsils and see if he may need a bx. I will give him nicotine patches to go home home with and wean off over the next 2 months. Plan 1. [place] home. The 7th grade social studies teacher returned the C9 and placed referral to promotions therapy for PT/OT as an outpatient. 2. Has an appointment with Dr. Isaac scheduled for 02/23/2023 at 11:45 AM. 3. Instructed to follow-up with Dr. Ben Way in 7 to 10 days for a follow-up on mildly elevated blood pressure. 4. Instructed to follow-up with an ENT doctor to examine his tonsils and determine if there is a need for biopsy of the white patch on the right tonsil. 5. Smoking/chewing cessation counseling given and RX for Nicotine patches at [place]. 6. He had colon polyps resected approximately 6 years ago and he does not know what the path report was. May be time for a follow up colonoscopy depending on the type of polyps that were resected. Medications at Discharge Home Medications atorvastatin 40 mg tablet 40 mg PO QHS Check with primary doctor 02/13/23 ibuprofen 400 mg tablet 400 mg PO Q8H PRN Pain (Scale Score 1-10) 02/13/23 lisinopril 10 mg tablet 10 mg PO DAILY Check with primary doctor 02/13/23 morphine 15 mg immediate release tablet 7.5 mg PO Q4H PRN Mod pain (1-10) 1 week #30 tabs 02/22/23 nicotine 14 mg/24 hr daily transdermal patch 14 mg transdermal DAILY #28 ea 02/22/23 nicotine 7 mg/24 hr daily transdermal patch 1 patch transdermal Q24H #14 ea 02/22/23 tizanidine 2 mg tablet 2 - 4 mg PO Q6H PRN PRN muscle spasticity 7 days #42 tabs 02/22/23 Hospital Course Operations None Procedures None Summary of Care Provided Minutes Spent on Discharge: 40 Hospital Course: CHRIS CLARK, is a 62 YO M? 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 A CT of the LS spine showed a burst fracture of L1 with a 30% loss of height and a 4 mm retropulsion of the posterior fracture fragment.? The fracture was of the superior aspect of L1 with anterior wedging.? A CT scan of the thoracic spine without contrast showed the L1 vertebral fracture but also showed multilevel flowing ventrolateral osteophytes, possibly reflective of DISH, and coronary calcification. He was admitted to a hospital for pain control and consult with orthopedics.? While in the hospital he was seen by PT/OT and they recommended acute rehab at [place].? George was transferred to the acute inpatient rehab unit at [facility] on 02/13/2023 for 3 hours of therapy daily to restore function at or near level prior to the fall/fracture.? Upon arrival he was complaining of severe low back pain but, he denied any radiation of the pain into his legs and also denied paresthesias. He had urine retention initially and had a straight cath done 1 time but after that he did not retain. He has had no urine or fecal incontinence. George was taking a muscle relaxer and Motrin for pain at admission. He was prescribed MS tabs 7.5 mg but, he would not take them. He was moving very slowly and painfully with therapy and not getting the most benefit from therapy. We scheduled MS 7.5 mg at 7 AM and noon and he started to do much better during his therapy sessions. He did not take any additional MS even though it was ordered PRN as well, even when he did not sleep well. We had no complications while he was in rehab. George did very well with therapy and prior to discharge he was independent with eating and supervision/set up with grooming. He was quired only minimal assistance with bathing, was supervision/set up for upper body dressing and contact-guard assist for lower body dressing. He needed minimal assistance with toilet transfer and was supervision/set up for toileting. He was standby assist for tub/shower transfer. He was able to ascend/descend 8 standard steps with bi lateral handrails at contact-guard assist. He had ambulated up to 320 feet with a rollator at contact-guard assist/standby assist with no loss of balance and at a functional pace. The therapist agreed that he was stable for discharge and would be able to be left by himself while his is at work. He was discharged on 02/22/2023 and will have outpatient PT/OT. Prior to discharge he was seen in consult by Dr. Robbin Isaac for possible epidural or vertebroplasty. He has an appointment with Dr. Isaac on 02/23/2023 at 11:45 AM. He is also going to follow-up with Dr. Ben Way to recheck blood pressure which has been mildly elevated in rehab and I suspect this is due to pain. I recommended he follow-up with an ENT doctor to examine his mouth and tonsils. He has a white patch on the right tonsil and some other abnormalities and due to a long history of chewing tobacco he is at risk for mouth/throat cancer. If he needs a referral he will ask Dr. Way. Physical Exam Const alert, oriented x3, no apparent distress and well nourished General Appearance: cooperative HEENT moist oral mucous membranes Eyes PERRL, EOMs intact bilaterally, conjunctivae normal and no scleral icterus General Eye: normal appearance of both eyes Neck no lymphadenopathy, supple, no JVD and no carotid bruits Resp normal respiratory effort, no use of accessory muscles and clear to auscultation bilaterally Resp Narrative: Not tachypneic and no conversational dyspnea. Diminished BS's. Effort and Inspection: able to speak in complete sentences Auscultation: diminished lung sounds Cardio regular rate, regular rhythm, S1 normal heart sound, S2 normal heart sound, no murmurs, no rub and no gallops Cardio Narrative: No ectopy GI normal to inspection, nondistended, normoactive bowel sounds, soft to palpation and non-tender GI Narrative: No guarding with palpation. Bladder / Kidney Exam: no CVA tenderness Back/Spine Back/Spine Narrative: Pain in the lumbar area BL. Lumbar paravertebral muscles are much softer and less spastic since admission to rehab. Good strength in legs and symmetrical. SLR is + but, not until 70-75 degrees and the pain was in the back not in the legs. Extremity no calf tenderness General Extremity: Negative for edema Skin Skin Narrative: No rashes, no skin breakdown. Neuro oriented x3, CN's II-XII intact bilaterally, no focal motor deficits and no sensory deficits noted Motor Exam: strength 5/5 throughout Psych affect normal Weight / BMI Weight Weight: 154 lb 14.4 oz Body Mass Index (BMI) 25.2 ABG / Lab / Microbiology Data Result Diagrams: 02/14/23 07:32 02/14/23 07:32 D/C Instructions Discharge Diet: Low fat / Low cholesterol Weight Bearing Status: Full weight bearing Call your doctor if you observe: Fever of 101 or Higher, Numbness or Tingling (Numbness or tingling in the legs or groin, sudden weakness of the legs, urinary or fecal incontinence.), Inability to urinate, Inability to have a bowel movement, Shortness of breath, Fainting spells, Swelling in the ankles, Chest pain, Increased palpitations (irregular heartbeat), Calf discomfort and Un controlled pain Pending Tests Upon Discharge: none. Please Follow Up With: Robbin Isaac MD When: Tomorrow morning at 11:45. You will also need to follow up with Dr. Ben Way in 7-10 days. Meaningful Use Info Meaningful Use Diagnoses (Choose all that apply): None applicable Discharge Plan Admission Admit Date/Time: 02/13/23 18:43 Primary Reason for Your Visit: Debility due to a 4' fall onto his back with fracture of L1 vertebrae. Attending Provider: Susy Ag Primary Care Provider: Ben Way Consulting Providers: Robbin Isaac Instructions Patient Instructions: Kyphoplasty, Lumbar Epidural Injection, Understanding Sm okeless Tobacco, ED Fracture, Vertebral Compression, ED How to Quit Smoking Additional Instructions / Restrictions: 1. I am giving you pain medication to go home with. Since I am not your primary care doctor I can only give you a weeks worth of pain medication. You can take the Morphine tablets every 4 hour as needed but, you have only been getting 2 daily. People tend to do more and have more pain at home......if you are doing something that is causing pain stop and rest, take a pain pill if needed. Remember Morphine can cause constipation so you may want to start taking Metamucil, Citracell or Miralax if you are having problems with constipation. 2. I have given you some literature to read about vertebral fractures, epidural injection and Kyphoplasty. You will probably want to read this prior to seeing Dr. Isaac tomorrow so you can be prepared and ask questions if necessary. 3. Chewing tobacco has nicotine in it. Nicotine can cause changes to the lining of the mouth and the tonsils. You have a white patch on your R tonsil that concerns me. These things can turn into cancer and I think you should follow up with an ENT doctor to look at your mouth and tonsils. You may need to have a biopsy. I am giving you a prescription for a 14 mg Nicotine patch to use for the next month and then you will decrease to a 7 mg patch for 2 weeks. The hospital has a quit line that can help if you are having problems staying away from Nicotine. All you need to do is call [phone] and ask to be connected to the smoking cessation coordinator. I have given you some info to read about the side effects of chronic Nicotine use. If I can help you please do not hesitate to call me. 4. Your BP has been mildly elevated at times while you were in rehab. I suspe ct this is because of pain but, you want to make sure it comes down so follow up with Dr. Way. You may want to purchase a BP cuff and take your BP at home and record the results to take to Dr. Way at your next visit. 5. If you or your have any questions after leaving rehab please do not hesitate to call me. Pleasure to meet you and [place]. Hope Dr. Isaac is able to give you some relief. He is excellent at what he does. OFFICE: [phone] CELL: [phone] Discharge Orders/Prescriptions Prescriptions: New morphine 15 mg Tablet 7.5 mg PO Q4H PRN (Reason: Mod pain (1-10)) 7 Days Qty: 30 0RF nicotine 14 mg/24 hr Patch 24 Hour 14 mg transdermal DAILY Qty: 28 0RF tizanidine 2 mg Tablet 2 - 4 mg PO Q6H PRN PRN (Reason: muscle spasticity) 7 Days Qty: 42 0RF Rx Instructions: 1-2 tabs every 6 H as needed for muscle spasms nicotine 7 mg/24 hr patch 24 hour 1 patch transdermal Q24H Qty: 14 0RF Continued atorvastatin 40 mg tablet 40 mg PO QHS Label Comments: TAKE 1 TABLET BY MOUTH EVERY DAY AT BEDTIME lisinopril 10 mg tablet 10 mg PO DAILY Label Comments: TAKE 1 TABLET BY MOUTH ONCE DAILY ibuprofen 400 mg Tablet 400 mg PO Q8H PRN (Reason: Pain (Scale Score 1-10)) Discontinued cyclobenzaprine 10 mg Tablet 10 mg PO TID polyethylene glycol 3350 [Miralax] 17 gram Powder In Packet 17 g PO DAILY oxycodone [OxyIR] 5 mg Capsule 5 mg PO Q6H PRN (Reason: Moderate Pain (Scale Score 5-10)) sennosides-docusate sodium 8.6-50 mg Capsule 2 tab-cap PO BID Referrals / Follow Up: Robbin Isaac MD [Med Staff - Active Staff] - 02/23/23 11:[address] MD [Primary Care Provider] - (call and make f/u appt) Disposition Disposition (needs filled in before D/C Order can be placed): Home, Self Care Charges/Coding Visit Charges Inpatient E&M: 17893 Disch Hosp >30min
== END 2023-02-22 11:50 | disposition home health service (06) | DRG 561 ==
PROVIDERS: Admitting Provider Internal Medicine; PCP Family Medicine; Visit Provider Internal Medicine
DX: S32.011D Stable burst fracture of first lumbar vertebra, subsequent encounter for fracture with routine healing (principal); E11.9 Type 2 diabetes mellitus without complications; M47.9 Spondylosis, unspecified; F17.220 Nicotine dependence, chewing tobacco, uncomplicated; E78.5 Hyperlipidemia, unspecified; I10 Essential (primary) hypertension; W17.89XD Other fall from one level to another, subsequent encounter; Z79.899 Other long term (current) drug therapy
CPT/HCPCS: 80048; 83735; 84100; 85027; 94668; 94762; 97110; 97116; 97162; 97166; 97530; 97535; 97802; 99406